=== PATIENT | female | born 1955 | race Caucasian/White ===

== ENCOUNTER 2016-11-15 06:29 | Day surgery (SDC) | payer BC ==
[~2016-11-15 06:29] MED LIST: Buffered Lidocaine 0.9% SYRIN* 5 ML/SYR SYRINGE INTRADERM ONE; Famotidine IV* 10 MG/ML 2 ML (20 mg) IV ONE; Metoclopramide IV* 5 MG/ML 2 ML VIAL IV SLOW PU ONE
[2016-11-15] MEDS ORDERED: Metoclopramide IV* 5 MG/ML 2 ML VIAL ONE (06:50)
[2016-11-15] MEDS ORDERED: Famotidine IV* 10 MG/ML 2 ML (20 mg) ONE (06:50)
[2016-11-15] MEDS ORDERED: Buffered Lidocaine 0.9% SYRIN* 5 ML/SYR SYRINGE ONE (06:51)
[2016-11-15] MEDS ORDERED: Phenylephrine 2.5% OPTH.SOL* 2 ML BTL ONE (07:17)
[2016-11-15] MEDS ORDERED: Tetracaine 0.5% OPTH.SOL 4 ML* 1 DROP BTL ONE (07:17)
[2016-11-15] MEDS ORDERED: BSS OPTH.SOL* BTL ONE (07:17)
[2016-11-15] MEDS ORDERED: Neomycin/Polymy/Dex OPHTH.OIN* 3.5 GM ONE (07:17)
[2016-11-15] MEDS ORDERED: Midazolam* 1 MG/ML 2 ML VIAL (2 MG) ONE (07:32)
[2016-11-15] MEDS ORDERED: Succinylcholine* 20 MG/ML 10 ML VIAL ONE (07:33)
[2016-11-15] MEDS ORDERED: ROPIVACAINE 5 MG/ML 30 ML BTL (0.5%) ONE (07:33)
[2016-11-15] MEDS ORDERED: DiMENhydriNATE IV* 50 MG/ML VIAL IV PUSH PRN (07:39)
[2016-11-15] MEDS ORDERED: fentaNYL* 50 MCG/ML 2 ML VIAL (100 MCG VIAL) IV PRN (07:39)
[2016-11-15] MEDS ORDERED: Propofol* 10 MG/ML 20 ML BTL IV PUSH ONE (08:13)
[2016-11-15] MEDS ORDERED: Dexamethasone IV* 4 MG/ML 1 ML (4 MG) ONE (08:13)
[2016-11-15] MEDS ORDERED: Ondansetron INJ* 2 MG/ML VIAL ONE (08:13)
[2016-11-15] MEDS ORDERED: Ketorolac INJ* 30 MG/ML 1 ML VIAL ONE (08:13)
[2016-11-15] MEDS ORDERED: Phenylephrine IV* 40 MCG/ML 10 ML SYRINGE ONE (08:30)
[2016-11-15 09:48] VITALS: BP 108/65
--- NOTE | 2016-11-15 16:04 | OP ---
DATE OF OPERATION: 11/15/16 [facility] DATE OF : 55 SURGEON: Juan Luis Stephens MD DIRECTOR ORGANIZATIONAL: None. ANESTHESIOLOGIST: Tone Hood MD ANESTHESIA: General. PRE-OP DIAGNOSIS: Esotropia with left hypertropia. POST-OP DIAGNOSIS: Esotropia with left hypertropia. OPERATIVE PROCEDURE: Recess medial rectus muscle 3.5 mm for esotropia of approximately 14 prism diopters in primary, recess superior rectus muscle 2 mm for left hypertropia of approximately 7 prism diopters, all on the left side. COMPLICATIONS: None. BLOOD LOSS: Minimal. DESCRIPTION OF PROCEDURE: The patient was brought to the operating room and received general anesthesia. A drop of tetracaine and a drop of phenylephrine were placed in each eye. The patient was prepped and draped in the usual sterile fashion for ophthalmic surgery. The right eye was inspected and previous eye muscle surgery had been done both nasally and temporally. There was a slight restriction to abduction and adduction. A speculum was placed in the left eye, where forced ductions were performed and found to be normal. The eye was grasped in the superior nasal quadrant near the limbus of the conjunctiva. It was pulled to inferotemporal gaze and a superonasal fornix incision was created with a Piedad scissor through the conjunctiva. Tenon's capsular was violated and the medial rectus muscle was isolated on a Godfrey muscle hook. The conjunctiva was reflected over the surface of the muscle and the check ligament was opened. The muscle was cleaned with sharp and blunt dissection. A double-arm 6-0 Vicryl suture was woven into the muscle near the insertion and locked at either end. The muscle was disinserted from the globe. The original muscle insertion was grasped with interrupted locking forceps. A beny was made on the sclera using a caliper measuring 3.5 mm posterior to the original insertion. The muscle was recessed to this point and sutures were tied securely. The sutures were trimmed. The locking forceps were removed. Gentle cauterization at the original insertion site was performed to achieve hemostasis. At this point, the superior rectus muscle was isolated on a [place]ant muscle hook through the same wound. The conjunctiva was reflected temporally over the surface of the muscle and the check ligament was opened. A double-arm Vicryl suture was woven into the muscle near its insertion and locked at either end. The muscle was disinserted from the globe. The original insertion site was grasped with interrupted, locking forceps. A beny was made on the sclera 2 mm posterior to the original insertion. The superior rectus muscle was recessed to this point and the sutures were tied securely. The sutures were trimmed. Hemostasis at the original insertion site was achieved with gentle cauterization. The locking forceps were removed. The conjunctiva was then closed with interrupted 6-0 gut sutures. The eye was irrigated with balanced saline and Maxitrol ointment was placed on to the surface of the eye. The speculum was removed. The patient was awakened uneventfully and sent to recovery room in stable condition with postop instructions and followup appointment given. [id number] #: [id number] SONAM
== END 2016-11-15 10:00 | disposition home or self-care (01) ==
LOC: OREAST 06:29
PROVIDERS: ATTEND Ophthalmology
DX: H50.012 Monocular esotropia, left eye (principal); H50.22 Vertical strabismus, left eye; K21.9 Gastro-esophageal reflux disease without esophagitis; E11.9 Type 2 diabetes mellitus without complications; I10 Essential (primary) hypertension; I35.1 Nonrheumatic aortic (valve) insufficiency; E03.9 Hypothyroidism, unspecified; K51.90 Ulcerative colitis, unspecified, without complications; I34.0 Nonrheumatic mitral (valve) insufficiency; L30.9 Dermatitis, unspecified; M17.12 Unilateral primary osteoarthritis, left knee; T14.8 Other injury of unspecified body region; W57.XXXA Bitten or stung by nonvenomous insect and other nonvenomous arthropods, initial encounter; Y92.9 Unspecified place or not applicable; K75.81 Nonalcoholic steatohepatitis (NASH); Z87.891 Personal history of nicotine dependence; Z85.828 Personal history of other malignant neoplasm of skin; Z88.1 Allergy status to other antibiotic agents; Z79.82 Long term (current) use of aspirin
CPT/HCPCS: A9270-GY; J0330; J1100; J1885; J2250; J2405; J2704; J2765; J2795